=== PATIENT | male | born 1980 | race African-American/Black ===

== ENCOUNTER 2017-02-05 22:25 | Emergency (ER) | payer MEDICAID, MEDICARE ==
[~2017-02-05] VITALS: Ht 185.4 cm; Wt 84.0 kg
[2017-02-06 01:10] VITALS: BP 107/65
== END 2017-02-06 01:05 | disposition home or self-care (01) ==
LOC: ER 22:25
DX: S62.305S Unspecified fracture of fourth metacarpal bone, left hand, sequela (principal); X58.XXXS Exposure to other specified factors, sequela; F12.10 Cannabis abuse, uncomplicated
CPT/HCPCS: 73130; 99284